=== PATIENT | female | born 1965 | race Caucasian/White ===

== ENCOUNTER → 2016-11-27 | Outpatient (CLI) | payer OTHER ==
--- NOTE | 2016-12-04 14:10 | MY ---
EXAMINATION: Bilateral digital mammography utilizing CAD. HISTORY: Screening exam. Comparison is made to previous studies dated 09/09/2015, 09/06/2015, 07/28, 06/23/2013. FINDINGS: Bilateral extremity dense breast tissue. No suspicious calcifications, masses or archite ctural distortions. No pathologic appearing lymph nodes, no abnormal skin thickening or nipple inv ersion. CAD highlighted regions appear normal at this time. IMPRESSION: BI-RADS category I - negative mammogram. Continued screening according to ACR-ACS gu idelines suggested. THE FALSE-NEGATIVE RATE OF MAMMOGRAM IS APPROXIMATELY 10%. MANAGEMENT OF A PALPABLE ABNORMALITY MUST BE BASED UPON CLINICAL GROUNDS. SENSITIVITY FOR DETECTION OF ABNORMALITIES IN DENSE BREASTS IS LOW. NOTE: A letter will be sent to the patient regarding findings. [facility] -- JESUS Mike [phone] - FAX [phone]
== END ==
LOC: MW.MAM 14:59
PROVIDERS: ATTEND Obstetrics & Gynecology
DX: Z12.31 Encounter for screening mammogram for malignant neoplasm of breast (principal)
CPT/HCPCS: G0202; G0202-26

== ENCOUNTER 2016-11-30 08:01 | Day surgery (SDC) | payer OTHER ==
--- NOTE | 2016-11-29 15:34 | PCM.PREANE ---
Preanesthetic Assessment - PMH PMH: scheduled for a total laparoscopic hysterectomy, Bilaterally salpingo- oophorectomy and cystoscopy - ANESTHESIA/TRANSFUSION/FAMILY HX Anesthesia/Transfusion History: Prior Anesthesia Type of Anesthesia Reaction: Reports: Excessive Nausea/Vomiting. 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 Respiratory: Reports: no symptoms Cardiovascular: Reports: lightheadedness (tired) GI: Reports: no symptoms - PHYSICAL ASSESSMENT HR: 102 O2 Sat by Pulse Oximetry: 99 RR: 16 BP: 130/72 Temp: 36.2 C Height: 5 ft 3 in Weight: 66.678 kg NPO Status Date: 11/29/16 NPO Status Time: 19:30 ASA Class: 3 Mental Status: alert & oriented x3 Airway Class: Mallampati = 2 Dentition: Reports: normal dentition Thyro-Mental Finger Breadths: 3 Mouth Opening Finger Breadths: 2 ROM/Head Extension: full Respiratory Status: lungs clear to auscultation bilaterally Cardiovascular Status: regular rate & rhythm, normal S1, S2, no murmur, blood pressure WNL - LAB Values: Laboratory Last Values WBC 10.91 K/uL (4.0-11.0) 11/29/16 14:47 RBC 3.77 M/uL (4.30-5.90) L 11/29/16 14:47 Hgb 8.0 g/dL (12.0-16.0) L 11/29/16 14:47 Hct 26.9 % (36.0-46.0) L 11/29/16 14:47 MCV 71.4 fL (80.0-98.0) L 11/29/16 14:47 MCH 21.2 pg (27.0-32.0) L 11/29/16 14:47 MCHC 29.7 g/dL (31.0-37.0) L 11/29/16 14:47 RDW Std Deviation 43.1 fl (28.0-62.0) 11/29/16 14:47 RDW Coeff of Allyson 17 % (11.0-15.0) H 11/29/16 14:47 Plt Count 518 K/uL (150-400) H 11/29/16 14:47 MPV 8.20 fL (7.40-12.00) 11/29/16 14:47 Nucleated RBC % 0.0 /100WBC 11/29/16 14:47 Nucleated RBCs # 0 K/uL 11/29/16 14:47 Sodium 137 mmol/L (136-146) 11/29/16 14:47 Potassium 4.1 mmol/L (3.5-5.1) 11/29/16 14:47 Chloride 104 mmol/L (98-110) 11/29/16 14:47 Carbon Dioxide 23 mmol/L (21-31) 11/29/16 14:47 BUN 15 mg/dL (6.0-23.0) 11/29/16 14:47 Creatinine 1.0 mg/dL (0.6-1.5) 11/29/16 14:47 Est Cr Clr Drug Dosing 56.29 mL/min 11/29/16 14:47 Estimated GFR (MDRD) 58.9 ml/min 11/29/16 14:47 Glucose 102 mg/dL (60-110) 11/29/16 14:47 Calcium 9.2 mg/dL (8.8-10.8) 11/29/16 14:47 HCG, Qual NEGATIVE (NEG) 11/29/16 14:47 - ALLERGIES Allergies/Adverse Reactions: Allergies Allergy/AdvReac Type Severity Reaction Status Date / Time No Known Allergies Allergy Verified 11/21/16 20:26 - BLOOD Blood Available: Yes Product(s) Available: PRBC (2 units type and crossed transfusing 1 unit preop) - ANESTHESIA PLAN Anesthesia Type Planned: general anesthesia - ACKNOWLEDGEMENTS Pt an appropriate candidate for the planned anesthesia: Yes Alternatives and risks of anesthesia discussed w pt/guardian: Yes Pt/Guardian understands and agree with anesthesia plan: Yes PreAnesthesia Questionnaire HEENT History: Reports: None Cardiovascular History: Reports: High cholesterol, Hypertension, Syncope (ER visit on 11/21/16 for sycopal event secondary to menorrhagia, HGB was 8.1, patient refused hospitalization and followed up with Dr Bonds in clinic and was started on Provera.), Other (see below) Other Cardiovascular History: mitral valve prolapse Respiratory History: Reports: None Gastrointestinal History: Reports: None Genitourinary History: Reports: None 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 Large fibroid measuring 7-8 cm Musculoskeletal History: Reports: None Neurological History: Reports: None Psychiatric History: Reports: None Endocrine/Metabolic History: Reports: Diabetes, type II Hematologic History: Reports: None, Anemia Oncologic (Cancer) History: Reports: None Dermatologic History: Reports: None - Infectious Disease History Infectious Disease History: Reports: Chicken pox - Past Surgical History Head Surgeries/Procedures: Reports: None HEENT Surgical History: Reports: Oral surgery Other Female Surgeries/Procedures: hysteroscopy - SUBSTANCE USE Smoking Status *Q: Never Smoker Recreational Drug Use History: No - HOME MEDS Home Medications: Home Meds Lisinopril 20 mg PO DAILY 11/21/16 [History] atorvaSTATin [Lipitor] 10 mg PO ONETIME 11/21/16 [History] metFORMIN [Glucophage] 1 tab PO DAILY 11/21/16 [History] - CURRENT (IN HOUSE) MEDS Current Meds: Current Medications Lactated Ringer's (Ringers, Lactated) 1,000 mls @ 500 mls/hr IV .BOLUS MITRA Sodium Chloride (Saline Flush) 10 ml FLUSH ASDIRECTED PRN PRN Reason: Keep Vein Open Sodium Chloride (Saline Flush) 2.5 ml FLUSH ASDIRECTED PRN PRN Reason: Keep Vein Open Discontinued Medications Cefazolin Sodium/Dextrose 2 gm (/ Premix) 50 mls @ 100 mls/hr IV ONETIME ONE Stop: 11/29/16 13:57
[~2016-11-30 08:01] MED LIST: Lactated Ringers 1,000 ML IV SCH; Lidocaine 2% 5 ML SDV ONE; Midazolam 1 MG/ML 2 ML SDV ONE; Neostigmine Methylsulfate 1 MG/ML 5 ML Syringe ONE; Ondansetron 4 MG/2 ML SDV ONE; Propofol 200 MG/20 ML SDV ONE; Rocuronium 10 MG/ML 10 ML Syringe ONE; Sodium Chloride 0.9% 10 ML Syringe FLUSH PRN; Sodium Chloride 0.9% 2.5 ML Syringe FLUSH PRN; Sodium Chloride 0.9% 20 ML ONE; ceFAZolin 1 GM Vial ONE; ceFAZolin 2 GM in Premix Bag 1 BAG IV ONE; fentaNYL 250 MCG/5 ML SDV ONE
[2016-11-30] MEDS ORDERED: Scopolamine 1.5 MG Transdermal Patch TRDERM PRN (08:32)
[2016-11-30] MEDS ORDERED: Phenylephrine 1% 10 MG/ML SDV ONE (09:48)
[2016-11-30] MEDS ORDERED: Furosemide 40 MG/4 ML VIAL ONE (09:53)
[2016-11-30] MEDS ORDERED: fentaNYL 250 MCG/5 ML SDV ONE (10:08)
[2016-11-30] MEDS ORDERED: Fluorescein 5 ML Vial ONE (10:26)
[2016-11-30] MEDS ORDERED: HYDROmorphone 2 MG/ML Syringe ONE (10:44)
[2016-11-30] MEDS ORDERED: Octyl 2-Cyanoacrylate 1 Tube ONE (11:05)
[2016-11-30] MEDS ORDERED: fentaNYL 100 MCG/2 ML SDV IVPUSH PRN (11:06)
[2016-11-30] MEDS ORDERED: Ketorolac 30 MG/ML SDV IVPUSH ONE (11:07)
[2016-11-30] MEDS ORDERED: Morphine 4 MG/ML Syringe IVPUSH PRN (11:07)
[2016-11-30] MEDS ORDERED: Promethazine 25 MG/ML SDV IM PRN (11:07)
[2016-11-30] MEDS ORDERED: Ondansetron 4 MG/2 ML SDV IVPUSH PRN (11:07)
--- NOTE | 2016-11-30 11:14 | PCM.OPNOTE ---
- General Post-Op/Procedure Note Date of Surgery/Procedure: 11/30/16 Operative Procedure(s): TLH BSO Cysto Findings: Fibroid Uterus Pre Op Diagnosis: Menometrorraghia, Fibroid Ut, Anemia Post-Op Diagnosis: Same Primary Surgeon: Luigi Bonds Vascular Technologist Sonographer: Ana Hughes EBL in mLs: 75 Complications: None Condition: Good
[2016-11-30] MEDS ORDERED: Lactated Ringers 1,000 ML IV SCH ×2 (13:45→15:45)
[2016-11-30] MEDS ORDERED: Ketorolac 30 MG/ML SDV IVPUSH PRN (17:00)
[2016-11-30] MEDS: Acetaminophen/oxyCODONE 325-5 MG Tab PO PRN (19:57)
[2016-12-01 05:37] LABS: CHLORIDE,CL 109 mmol/L (98-110); SODIUM,NA 140 mmol/L (136-146)
[2016-12-01] MEDS: Acetaminophen/oxyCODONE 325-5 MG Tab PO PRN (06:09)
--- NOTE | 2016-12-01 06:18 | OR ---
SURGEON: Luigi Bonds MD DATE OF PROCEDURE: 11/30/16 PREOPERATIVE DIAGNOSES: Menometrorrhagia, fibroid uterus, anemia. POSTOPERATIVE DIAGNOSES: Menometrorrhagia, fibroid uterus, anemia. OPERATION PERFORMED: Total laparoscopic hysterectomy, laparoscopic bilateral salpingo-oophorectomy, and cystoscopy. EDITOR NEWS: TREMAINE Batista. ANESTHESIA: General endotracheal intubation by Vincenzo Doll and Dr. Nuñez. ESTIMATED BLOOD LOSS: 75 mL. COMPLICATION: None. FINDINGS: Uterus with multiple fibroid about 15 week size. INDICATION: Surprise refer to the admit note. PROCEDURE IN DETAIL: The patient was brought to the OR, properly identified, and after adequate level of general anesthesia, the patient was placed in lithotomy position with an access to the abdomen and the vagina. Koenig catheter was placed in the bladder for drainage and the VCare manipulator placed in the uterus for manipulation. The operation shifted abdominally. Stab wound done beneath the umbilicus. The Veress needle was placed in the peritoneal cavity and that cavity was insufflated with 6 L of carbon dioxide. Then, the 5-mm trocar was entered beneath the umbilicus utilizing the Visiport techniques. Once we were in the peritoneal cavity, 10-12 trocar was placed and 5-mm trocar placed in the left and right iliac fossa under direct vision. The operation was started after placing the patient steep Trendelenburg and identifying the landmark of the pelvis, and once we did identify the landmarks of the pelvis, then the superior pedicle coagulated, transected using the EnSeal Harmonic scapula. On both sides, the tubes and ovary included with a specimen and then the round ligament in the same manner coagulated and transected with Harmonic scalpel. Then, the anterior leaf of the broad ligament dissected downward medially pushing the bladder completely away from the operative field. The uterine vessel identified on both sides and coagulated and transected using the SHANTA seven harmonic scapula. Once it was done, the uterus was now only attached to the vagina using the SHANTA seven harmonic scapula, circular incision in the vaginal mucosa around the tip of the VCare manipulator done without any problem and then the uterus was moved and delivered vaginally. Pneumoperitoneum re-established by placing vaginal pack in the vagina and inspection of the entire operative field showed no oozing, no bleeding. We proceeded to close the vaginal cuff laparoscopically using 2-0 PDS interrupted [id number] sutures. While that was done, we asked the anesthesiologist to give the patient fluorescein, and then the air evacuated from the peritoneal cavity. The Koenig catheter was removed and cystoscopy was performed. The bladder was intact. Both ureteric orifices were seen with the dye coming from both of them. Thus, the patency of both ureters verified. Satisfied with these findings, the procedure ended. The instrument and hardware were retrieved from the abdomen and the vagina and the multiple laparoscopic incisions were closed in layers. Instrument and sponge count was correct. The patient tolerated the procedure well, went to recovery room in stable general condition. RONY / ANNMARIE /[id number]
[2016-12-01 07:51] VITALS: BP 110/64
--- NOTE | 2016-12-01 09:00 | PCM.SURGPN ---
- General Info Date of Service: 12/01/16 POD#: 1 Functional Status: Reports: pain controlled - Review of Systems General: Reports: no symptoms HEENT: Reports: no symptoms Pulmonary: Reports: no symptoms Cardiovascular: Reports: no symptoms Gastrointestinal: Reports: No symptoms Genitourinary: Reports: no symptoms Musculoskeletal: Reports: no symptoms Skin: Reports: no symptoms Neurological: Reports: no symptoms Psychiatric: Reports: no symptoms - Patient Data Vitals - most recent: Last Vital Signs Temp 37.1 C 12/01/16 07:48 Pulse 94 12/01/16 07:48 Resp 18 12/01/16 07:48 BP 110/64 12/01/16 07:48 Pulse Ox 95 12/01/16 07:48 Weight - most recent: 66.678 kg I&O - last 24 hours: Intake & Output 11/30/16 12/01/16 12/01/16 22:59 06:59 14:59 Output Total 1050 550 Balance -1050 -550 Lab Results last 24 hrs: Laboratory Results - last 24 hr 11/29/16 11/29/16 11/29/16 Range/Units 14:47 14:47 14:47 WBC (4.0-11.0) K/uL RBC (4.30-5.90) M/uL Hgb (12.0-16.0) g/dL Hct (36.0-46.0) % MCV (80.0-98.0) fL MCH (27.0-32.0) pg MCHC (31.0-37.0) g/dL RDW Std Deviation (28.0-62.0) fl RDW Coeff of Allyson (11.0-15.0) % Plt Count (150-400) K/uL MPV (7.40-12.00) fL Neut % (Auto) (48.0-80.0) % Lymph % (Auto) (16.0-40.0) % [place] % (Auto) (0.0-15.0) % Eos % (Auto) (0.0-7.0) % Baso % (Auto) (0.0-1.5) % Neut # (1.4-5.7) K/uL Lymph # (0.6-2.4) K/uL [place] # (0.0-0.8) K/uL Eos # (0.0-0.7) K/uL Baso # (0.0-0.1) K/uL Nucleated RBC % /100WBC Nucleated RBCs # K/uL Sodium 137 (136-146) mmol/L Potassium 4.1 (3.5-5.1) mmol/L Chloride 104 (98-110) mmol/L Carbon Dioxide 23 (21-31) mmol/L BUN 15 (6.0-23.0) mg/dL Creatinine 1.0 (0.6-1.5) mg/dL Est Cr Clr Drug Dosing 56.29 mL/min Estimated GFR (MDRD) 58.9 ml/min Glucose 102 (60-110) mg/dL Calcium 9.2 (8.8-10.8) mg/dL Blood Type B POSITIVE Antibody Screen NEGATIVE Crossmatch See Detail See Detail 12/01/16 12/01/16 Range/Units 04:39 04:39 WBC 10.36 (4.0-11.0) K/uL RBC 3.47 L (4.30-5.90) M/uL Hgb 7.7 L (12.0-16.0) g/dL Hct 25.6 L (36.0-46.0) % MCV 73.8 L (80.0-98.0) fL MCH 22.2 L (27.0-32.0) pg MCHC 30.1 L (31.0-37.0) g/dL RDW Std Deviation 47.3 (28.0-62.0) fl RDW Coeff of Allyson 18 H (11.0-15.0) % Plt Count 397 (150-400) K/uL MPV 8.30 (7.40-12.00) fL Neut % (Auto) 71.3 (48.0-80.0) % Lymph % (Auto) 17.5 (16.0-40.0) % [place] % (Auto) 10.6 (0.0-15.0) % Eos % (Auto) 0.4 (0.0-7.0) % Baso % (Auto) 0.2 (0.0-1.5) % Neut # 7.4 H (1.4-5.7) K/uL Lymph # 1.8 (0.6-2.4) K/uL [place] # 1.1 H (0.0-0.8) K/uL Eos # 0.0 (0.0-0.7) K/uL Baso # 0.0 (0.0-0.1) K/uL Nucleated RBC % 0.0 /100WBC Nucleated RBCs # 0 K/uL Sodium 140 (136-146) mmol/L Potassium 4.1 (3.5-5.1) mmol/L Chloride 109 (98-110) mmol/L Carbon Dioxide 22 (21-31) mmol/L BUN 9 (6.0-23.0) mg/dL Creatinine 0.8 (0.6-1.5) mg/dL Est Cr Clr Drug Dosing 70.37 mL/min Estimated GFR (MDRD) > 60.0 ml/min Glucose 90 (60-110) mg/dL Calcium 8.0 L (8.8-10.8) mg/dL Blood Type Antibody Screen Crossmatch Med Orders - Current: Current Medications Fentanyl (Sublimaze) 50 mcg IVPUSH Q5M PRN PRN Reason: Pain (severe 7-10) Stop: 12/01/16 11:06 Last Admin: 11/30/16 11:46 Dose: 50 mcg Lactated Ringer's (Ringers, Lactated) 1,000 mls @ 500 mls/hr IV .BOLUS [facility] Last Admin: 11/30/16 08:31 Dose: 500 mls/hr Lactated Ringer's (Ringers, Lactated) 1,000 mls @ 125 mls/hr IV ASDIRECTED [facility] Last Admin: 11/30/16 15:39 Dose: 125 mls/hr Ketorolac Tromethamine (Toradol) 30 mg IVPUSH Q6H PRN PRN Reason: Pain (severe 7-10) Stop: 12/05/16 17:01 Last Admin: 11/30/16 16:47 Dose: 30 mg Morphine Sulfate (Morphine) 4 mg IVPUSH Q2H PRN PRN Reason: Pain (severe 7-10) Last Admin: 11/30/16 13:01 Dose: 4 mg Ondansetron HCl (Zofran) 4 mg IVPUSH Q6H PRN PRN Reason: Nausea/Vomiting Oxycodone/Acetaminophen (Percocet 325-5 Mg) 2 tab PO Q4H PRN PRN Reason: Pain (moderate 4-6) Last Admin: 12/01/16 06:09 Dose: 2 tab Promethazine HCl (Phenergan) 25 mg IM Q6H PRN PRN Reason: Nausea/Vomiting Scopolamine (Transderm-Scop) 1.5 mg TRDERM Q72H PRN PRN Reason: Nausea Last Admin: 11/30/16 09:04 Dose: 1.5 mg Sodium Chloride (Saline Flush) 10 ml FLUSH ASDIRECTED PRN PRN Reason: Keep Vein Open Sodium Chloride (Saline Flush) 2.5 ml FLUSH ASDIRECTED PRN PRN Reason: Keep Vein Open Discontinued Medications Cefazolin Sodium (Ancef) Confirm Administered Dose 2 gm .ROUTE .STK-MED ONE Stop: 11/30/16 07:25 Fentanyl (Sublimaze) Confirm Administered Dose 250 mcg .ROUTE .STK-MED ONE Stop: 11/30/16 07:23 Fentanyl (Sublimaze) Confirm Administered Dose 250 mcg .ROUTE .STK-MED ONE Stop: 11/30/16 10:09 Fluorescein Sodium (Ak-Fluor) Confirm Administered Dose 5 ml .ROUTE .STK-MED ONE Stop: 11/30/16 10:27 Furosemide (Lasix) Confirm Administered Dose 40 mg .ROUTE .STK-MED ONE Stop: 11/30/16 09:54 Glycopyrrolate (Robinul) Confirm Administered Dose 1 mg .ROUTE .STK-MED ONE Stop: 11/30/16 07:22 Hydromorphone HCl (Dilaudid) Confirm Administered Dose 2 mg .ROUTE .STK-MED ONE Stop: 11/30/16 10:45 Cefazolin Sodium/Dextrose 2 gm (/ Premix) 50 mls @ 100 mls/hr IV ONETIME ONE Stop: 11/29/16 13:57 Last Admin: 11/30/16 12:53 Dose: Not Given Sodium Chloride (Normal Saline) Confirm Administered Dose 20 mls @ as directed .ROUTE .STK-MED ONE Stop: 11/30/16 07:25 Ketorolac Tromethamine (Toradol) 30 mg IVPUSH ONETIME ONE Stop: 11/30/16 11:08 Last Admin: 11/30/16 11:37 Dose: 30 mg Lidocaine (Xylocaine-Mpf 2%) Confirm Administered Dose 5 ml .ROUTE .STK-MED ONE Stop: 11/30/16 07:22 Midazolam HCl (Versed 1 Mg/Ml) Confirm Administered Dose 2 mg .ROUTE .STK-MED ONE Stop: 11/30/16 07:23 Neostigmine Methylsulfate (Neostigmine) Confirm Administered Dose 5 mg .ROUTE .STK-MED ONE Stop: 11/30/16 07:22 Octyl Cyanoacrylate (Dermabond Advance) Confirm Administered Dose 1 applic .ROUTE .STK-MED ONE Stop: 11/30/16 11:06 Ondansetron HCl (Zofran) Confirm Administered Dose 4 mg .ROUTE .STK-MED ONE Stop: 11/30/16 07:22 Phenylephrine HCl (Patrick-Synephrine) Confirm Administered Dose 10 mg .ROUTE .STK- MED ONE Stop: 11/30/16 09:49 Propofol (Diprivan 20 Ml) Confirm Administered Dose 200 mg .ROUTE .STK-MED ONE Stop: 11/30/16 07:23 Rocuronium [place] (Zemuron) Confirm Administered Dose 100 mg .ROUTE .STK-MED ONE Stop: 11/30/16 07:22 - Exam Wound/Incisions: healing well General: alert, oriented HEENT: Pupils equal Neck: supple Lungs: Clear to auscultation, Normal respiratory effort Cardiovascular: regular rate, regular rhythm Abdomen: bowel sounds present, soft, no tenderness, no distension Extremities: no edema Skin: warm, dry, intact Neurological: no new focal deficit Psy/Mental Status: alert, normal affect, normal mood - Problem List Review Problem List Initiated/Reviewed/Updated: Yes - My Orders Last 24 Hours: Active Orders 24 hr Category Date Time Status Patient Status [ADT] Routine ADT 11/30/16 11:07 Active Antiembolic Devices [RC] PER UNIT ROUTINE Care 11/30/16 11:08 Active Blood Glucose Check, Bedside [RC] ONETIME Care 11/30/16 08:00 Active Notify Provider Vital Signs [RC] ASDIRECTED Care 11/30/16 11:07 Active RT Incentive Spirometry [RC] Q2HWA Care 11/30/16 11:07 Active Up ad Olivia [RC] PER UNIT ROUTINE Care 11/30/16 11:07 Active Vital Signs [RC] PER UNIT ROUTINE Care 11/30/16 11:07 Active Regular Diet [DIET] Diet 11/30/16 Dinner Active Acetaminophen/oxyCODONE [Percocet 325-5 MG] Med 11/30/16 11:07 Active 2 tab PO Q4H PRN Ketorolac [Toradol] Med 11/30/16 17:00 Active 30 mg IVPUSH Q6H PRN Lactated Ringers [Ringers, Lactated] 1,000 ml Med 11/30/16 15:45 Active IV ASDIRECTED Morphine Med 11/30/16 11:07 Active 4 mg IVPUSH Q2H PRN Ondansetron [Zofran] Med 11/30/16 11:07 Active 4 mg IVPUSH Q6H PRN Promethazine [Phenergan] Med 11/30/16 11:07 Active 25 mg IM Q6H PRN Scopolamine [Transderm-Scop] Med 11/30/16 08:32 Active 1.5 mg TRDERM Q72H PRN fentaNYL [Sublimaze] Med 11/30/16 11:06 Active 50 mcg IVPUSH Q5M PRN Peripheral IV Discontinue [OM.PC] Routine Oth 11/30/16 11:07 Ordered Sequential Compression Device [OM.PC] Per Unit Routine Oth 11/30/16 11:07 Ordered Transfuse PRBC [Transfuse Red Blood Cells] [COMM] Oth 11/30/16 08:08 Ordered Urgent Resuscitation Status Routine Resus Stat 11/30/16 11:07 Ordered Medication Orders Fentanyl (Sublimaze) 50 mcg IVPUSH Q5M PRN PRN Reason: Pain (severe 7-10) Stop: 12/01/16 11:06 Last Admin: 11/30/16 11:46 Dose: 50 mcg Lactated Ringer's (Ringers, Lactated) 1,000 mls @ 500 mls/hr IV .BOLUS MITRA Last Admin: 11/30/16 08:31 Dose: 500 mls/hr Lactated Ringer's (Ringers, Lactated) 1,000 mls @ 125 mls/hr IV ASDIRECTED MITRA Last Admin: 11/30/16 15:39 Dose: 125 mls/hr Ketorolac Tromethamine (Toradol) 30 mg IVPUSH Q6H PRN PRN Reason: Pain (severe 7-10) Stop: 12/05/16 17:01 Last Admin: 11/30/16 16:47 Dose: 30 mg Morphine Sulfate (Morphine) 4 mg IVPUSH Q2H PRN PRN Reason: Pain (severe 7-10) Last Admin: 11/30/16 13:01 Dose: 4 mg Ondansetron HCl (Zofran) 4 mg IVPUSH Q6H PRN PRN Reason: Nausea/Vomiting Oxycodone/Acetaminophen (Percocet 325-5 Mg) 2 tab PO Q4H PRN PRN Reason: Pain (moderate 4-6) Last Admin: 12/01/16 06:09 Dose: 2 tab Admin: 11/30/16 19:57 Dose: 2 tab Promethazine HCl (Phenergan) 25 mg IM Q6H PRN PRN Reason: Nausea/Vomiting Scopolamine (Transderm-Scop) 1.5 mg TRDERM Q72H PRN PRN Reason: Nausea Last Admin: 11/30/16 09:04 Dose: 1.5 mg Sodium Chloride (Saline Flush) 10 ml FLUSH ASDIRECTED PRN PRN Reason: Keep Vein Open Sodium Chloride (Saline Flush) 2.5 ml FLUSH ASDIRECTED PRN PRN Reason: Keep Vein Open - Assessment Assessment (Free Text/Narrative):: Status post total laparoscopic hysterectomy and laparoscopic bilateral salpingo- oophorectomy postoperative day #1 she is doing well the arthroscopic incision is fine no vaginal bleeding on regular diet voiding without any problem. Her H& H is stable - Plan Plan (Free Text/Narrative):: I'm sending the patient home the post hysterectomy instruction is given to the patient a prescription for Percocet 7.5/325 by mouth 50 tablet is given the patient to take it every 4 hours and when necessary for the pain. There is no restriction on her diet the patient have an appointment to come to the office one week postoperatively
--- NOTE | 2016-12-01 09:01 | PCM.DCSUM1 ---
Discharge Summary - Discharge Data Discharge Date: 12/01/16 Discharge Disposition: Home, Self-Care 01 Condition: Good - Patient Summary/Data Operative Procedure(s) Performed: [facility] BSO Cysto - Patient Instructions Diet: Usual Diet as Tolerated Driving: Do Not Drive Showering/Bathing: May Shower Wound/Incision Care: Keep Operative Site/Wound Site Clean and Dry Notify Provider of: Fever, Increased Pain, Swelling and Redness, Nausea and/or Vomiting - Discharge Plan Home Medications: Home Meds Lisinopril 20 mg PO DAILY 11/21/16 [History] atorvaSTATin [Lipitor] 10 mg PO ONETIME 11/21/16 [History] metFORMIN [Glucophage] 1 tab PO DAILY 11/21/16 [History] Referrals: [facility] [Outside] Luigi Bonds MD [Primary Care Provider] - (1 week- December 12 @ 10:45am w/ Dr. Bonds week- January 12 @ 10:45am w/ Dr. Bonds) - General Info Date of Service: 12/01/16 Functional Status: Reports: pain controlled - Review of Systems General: Reports: no symptoms HEENT: Reports: no symptoms Pulmonary: Reports: no symptoms Cardiovascular: Reports: no symptoms Gastrointestinal: Reports: No symptoms Genitourinary: Reports: no symptoms Musculoskeletal: Reports: no symptoms Skin: Reports: no symptoms Neurological: Reports: no symptoms Psychiatric: Reports: no symptoms - Patient Data Vitals - Most Recent: Last Vital Signs Temp 37.1 C 12/01/16 07:48 Pulse 94 12/01/16 07:48 Resp 18 12/01/16 07:48 BP 110/64 12/01/16 07:48 Pulse Ox 95 12/01/16 07:48 Weight - Most Recent: 66.678 kg I&O - Last 24 hours: Intake & Output 11/30/16 12/01/16 12/01/16 22:59 06:59 14:59 Output Total 1050 550 Balance -1050 -550 Lab Results - Last 24 hrs: Laboratory Results - last 24 hr 11/29/16 11/29/16 11/29/16 Range/Units 14:47 14:47 14:47 WBC (4.0-11.0) K/uL RBC (4.30-5.90) M/uL Hgb (12.0-16.0) g/dL Hct (36.0-46.0) % MCV (80.0-98.0) fL MCH (27.0-32.0) pg MCHC (31.0-37.0) g/dL RDW Std Deviation (28.0-62.0) fl RDW Coeff of Allyson (11.0-15.0) % Plt Count (150-400) K/uL MPV (7.40-12.00) fL Neut % (Auto) (48.0-80.0) % Lymph % (Auto) (16.0-40.0) % [place] % (Auto) (0.0-15.0) % Eos % (Auto) (0.0-7.0) % Baso % (Auto) (0.0-1.5) % Neut # (1.4-5.7) K/uL Lymph # (0.6-2.4) K/uL [place] # (0.0-0.8) K/uL Eos # (0.0-0.7) K/uL Baso # (0.0-0.1) K/uL Nucleated RBC % /100WBC Nucleated RBCs # K/uL Sodium 137 (136-146) mmol/L Potassium 4.1 (3.5-5.1) mmol/L Chloride 104 (98-110) mmol/L Carbon Dioxide 23 (21-31) mmol/L BUN 15 (6.0-23.0) mg/dL Creatinine 1.0 (0.6-1.5) mg/dL Est Cr Clr Drug Dosing 56.29 mL/min Estimated GFR (MDRD) 58.9 ml/min Glucose 102 (60-110) mg/dL Calcium 9.2 (8.8-10.8) mg/dL Blood Type B POSITIVE Antibody Screen NEGATIVE Crossmatch See Detail See Detail 12/01/16 12/01/16 Range/Units 04:39 04:39 WBC 10.36 (4.0-11.0) K/uL RBC 3.47 L (4.30-5.90) M/uL Hgb 7.7 L (12.0-16.0) g/dL Hct 25.6 L (36.0-46.0) % MCV 73.8 L (80.0-98.0) fL MCH 22.2 L (27.0-32.0) pg MCHC 30.1 L (31.0-37.0) g/dL RDW Std Deviation 47.3 (28.0-62.0) fl RDW Coeff of Allyson 18 H (11.0-15.0) % Plt Count 397 (150-400) K/uL MPV 8.30 (7.40-12.00) fL Neut % (Auto) 71.3 (48.0-80.0) % Lymph % (Auto) 17.5 (16.0-40.0) % [place] % (Auto) 10.6 (0.0-15.0) % Eos % (Auto) 0.4 (0.0-7.0) % Baso % (Auto) 0.2 (0.0-1.5) % Neut # 7.4 H (1.4-5.7) K/uL Lymph # 1.8 (0.6-2.4) K/uL [place] # 1.1 H (0.0-0.8) K/uL Eos # 0.0 (0.0-0.7) K/uL Baso # 0.0 (0.0-0.1) K/uL Nucleated RBC % 0.0 /100WBC Nucleated RBCs # 0 K/uL Sodium 140 (136-146) mmol/L Potassium 4.1 (3.5-5.1) mmol/L Chloride 109 (98-110) mmol/L Carbon Dioxide 22 (21-31) mmol/L BUN 9 (6.0-23.0) mg/dL Creatinine 0.8 (0.6-1.5) mg/dL Est Cr Clr Drug Dosing 70.37 mL/min Estimated GFR (MDRD) > 60.0 ml/min Glucose 90 (60-110) mg/dL Calcium 8.0 L (8.8-10.8) mg/dL Blood Type Antibody Screen Crossmatch Med Orders - Current: Current Medications Fentanyl (Sublimaze) 50 mcg IVPUSH Q5M PRN PRN Reason: Pain (severe 7-10) Stop: 12/01/16 11:06 Last Admin: 11/30/16 11:46 Dose: 50 mcg Lactated Ringer's (Ringers, Lactated) 1,000 mls @ 500 mls/hr IV .BOLUS MITRA Last Admin: 11/30/16 08:31 Dose: 500 mls/hr Lactated Ringer's (Ringers, Lactated) 1,000 mls @ 125 mls/hr IV ASDIRECTED MITRA Last Admin: 11/30/16 15:39 Dose: 125 mls/hr Ketorolac Tromethamine (Toradol) 30 mg IVPUSH Q6H PRN PRN Reason: Pain (severe 7-10) Stop: 12/05/16 17:01 Last Admin: 11/30/16 16:47 Dose: 30 mg Morphine Sulfate (Morphine) 4 mg IVPUSH Q2H PRN PRN Reason: Pain (severe 7-10) Last Admin: 11/30/16 13:01 Dose: 4 mg Ondansetron HCl (Zofran) 4 mg IVPUSH Q6H PRN PRN Reason: Nausea/Vomiting Oxycodone/Acetaminophen (Percocet 325-5 Mg) 2 tab PO Q4H PRN PRN Reason: Pain (moderate 4-6) Last Admin: 12/01/16 06:09 Dose: 2 tab Promethazine HCl (Phenergan) 25 mg IM Q6H PRN PRN Reason: Nausea/Vomiting Scopolamine (Transderm-Scop) 1.5 mg TRDERM Q72H PRN PRN Reason: Nausea Last Admin: 11/30/16 09:04 Dose: 1.5 mg Sodium Chloride (Saline Flush) 10 ml FLUSH ASDIRECTED PRN PRN Reason: Keep Vein Open Sodium Chloride (Saline Flush) 2.5 ml FLUSH ASDIRECTED PRN PRN Reason: Keep Vein Open Discontinued Medications Cefazolin Sodium (Ancef) Confirm Administered Dose 2 gm .ROUTE .STK-MED ONE Stop: 11/30/16 07:25 Fentanyl (Sublimaze) Confirm Administered Dose 250 mcg .ROUTE .STK-MED ONE Stop: 11/30/16 07:23 Fentanyl (Sublimaze) Confirm Administered Dose 250 mcg .ROUTE .STK-MED ONE Stop: 11/30/16 10:09 Fluorescein Sodium (Ak-Fluor) Confirm Administered Dose 5 ml .ROUTE .STK-MED ONE Stop: 11/30/16 10:27 Furosemide (Lasix) Confirm Administered Dose 40 mg .ROUTE .[facility] ONE Stop: 11/30/16 09:54 Glycopyrrolate (Robinul) Confirm Administered Dose 1 mg .ROUTE .[facility]-MED ONE Stop: 11/30/16 07:22 Hydromorphone HCl (Dilaudid) Confirm Administered Dose 2 mg .ROUTE .[facility] ONE Stop: 11/30/16 10:45 Cefazolin Sodium/Dextrose 2 gm (/ Premix) 50 mls @ 100 mls/hr IV ONETIME ONE Stop: 11/29/16 13:57 Last Admin: 11/30/16 12:53 Dose: Not Given Sodium Chloride (Normal Saline) Confirm Administered Dose 20 mls @ as directed .ROUTE .[facility] ONE Stop: 11/30/16 07:25 Ketorolac Tromethamine (Toradol) 30 mg IVPUSH ONETIME ONE Stop: 11/30/16 11:08 Last Admin: 11/30/16 11:37 Dose: 30 mg Lidocaine (Xylocaine-Mpf 2%) Confirm Administered Dose 5 ml .ROUTE .[facility] ONE Stop: 11/30/16 07:22 Midazolam HCl (Versed 1 Mg/Ml) Confirm Administered Dose 2 mg .ROUTE .[facility]-MED ONE Stop: 11/30/16 07:23 Neostigmine Methylsulfate (Neostigmine) Confirm Administered Dose 5 mg .ROUTE .[facility] ONE Stop: 11/30/16 07:22 Octyl Cyanoacrylate (Dermabond Advance) Confirm Administered Dose 1 applic .ROUTE .[facility] ONE Stop: 11/30/16 11:06 Ondansetron HCl (Zofran) Confirm Administered Dose 4 mg .ROUTE .[facility] ONE Stop: 11/30/16 07:22 Phenylephrine HCl (Patrick-Synephrine) Confirm Administered Dose 10 mg .ROUTE .[facility] ONE Stop: 11/30/16 09:49 Propofol (Diprivan 20 Ml) Confirm Administered Dose 200 mg .ROUTE .[facility] ONE Stop: 11/30/16 07:23 Rocuronium Wiseman (Zemuron) Confirm Administered Dose 100 mg .ROUTE .[facility] ONE Stop: 11/30/16 07:22 - Exam General: Reports: alert, oriented HEENT: Reports: Pupils equal, Pupils reactive, EOMI, Mucous membr. moist/pink Neck: Reports: supple Lungs: Reports: Clear to auscultation, Normal respiratory effort Cardiovascular: Reports: regular rate, regular rhythm Abdomen: Reports: bowel sounds present, soft, no tenderness, no distension (Female) Exam: Normal external exam, Normal speculum exam, Normal bimanual exam Rectal (Female) Exam: Normal Exam, Normal rectal tone Back Exam: Reports: normal inspection, full range of motion Extremities: Reports: no edema, normal pulses Skin: Reports: warm, dry, intact Wound/Incisions: Reports: healing well Neurological: Reports: no new focal deficit Psy/Mental Status: Reports: alert, normal affect, normal mood *Q Meaningful Use (DIS) - VTE *Q VTE Criteria *Q: - Stroke *Q Stroke Criteria *Q: - AMI *Q AMI Criteria *Q:
== END 2016-12-01 09:30 | disposition home or self-care (01) ==
LOC: MW.SDS 08:01 → MW.OB 11:07 → MW.SDS 12-01 09:30
PROVIDERS: ATTEND Obstetrics & Gynecology
PROC: 0UT9FZZ Resection of Uterus, Via Natural or Artificial Opening With Percutaneous Endoscopic Assistance (ICD-10-PCS; principal; 2016-11-30)
PROC: 0UTC7ZZ Resection of Cervix, Via Natural or Artificial Opening (ICD-10-PCS; 2016-11-30)
PROC: 0UT2FZZ Resection of Bilateral Ovaries, Via Natural or Artificial Opening With Percutaneous Endoscopic Assistance (ICD-10-PCS; 2016-11-30)
PROC: 0UT7FZZ Resection of Bilateral Fallopian Tubes, Via Natural or Artificial Opening With Percutaneous Endoscopic Assistance (ICD-10-PCS; 2016-11-30)
DX: D25.0 Submucous leiomyoma of uterus (principal); D25.1 Intramural leiomyoma of uterus; D25.2 Subserosal leiomyoma of uterus; N85.00 Endometrial hyperplasia, unspecified; N72 Inflammatory disease of cervix uteri; D27.0 Benign neoplasm of right ovary; N83.02 Follicular cyst of left ovary; N83.01 Follicular cyst of right ovary; D64.9 Anemia, unspecified; E78.00 Pure hypercholesterolemia, unspecified; I10 Essential (primary) hypertension; I34.1 Nonrheumatic mitral (valve) prolapse; E11.9 Type 2 diabetes mellitus without complications; Z79.84 Long term (current) use of oral hypoglycemic drugs; Z79.899 Other long term (current) drug therapy; Z98.890 Other specified postprocedural states
CPT/HCPCS: 36415; 36430; 58571; 80048; 82962; 84703; 85025; 85027; 86850; 86900; 86901; 86920; 86921; 86922; A9270; J0690; J1170; J1885; J1940; J2250; J2270; J2370; J2405; J2710; J3010; J7120; P9016; 00944; 88307; J2704

== ENCOUNTER 2018-11-14 08:51 | Day surgery (SDC) | payer OTHER ==
[~2018-11-14 08:51] MED LIST changes: -Midazolam 1 MG/ML 2 ML SDV ONE; -Neostigmine Methylsulfate 1 MG/ML 5 ML Syringe ONE; -Ondansetron 4 MG/2 ML SDV ONE; -Rocuronium 10 MG/ML 10 ML Syringe ONE; -Sodium Chloride 0.9% 20 ML ONE; -ceFAZolin 1 GM Vial ONE; -ceFAZolin 2 GM in Premix Bag 1 BAG IV ONE; +fentaNYL 100 MCG/2 ML SDV ONE; -fentaNYL 250 MCG/5 ML SDV ONE
[2018-11-14] MEDS ORDERED: fentaNYL 100 MCG/2 ML SDV IVPUSH PRN (09:36)
[2018-11-14] MEDS ORDERED: Ondansetron 4 MG/2 ML SDV IVPUSH PRN (09:36)
--- NOTE | 2018-11-14 09:36 | PCM.PREANE ---
Preanesthetic Assessment - Anesthesia/Transfusion/Family Hx Anesthesia History: Prior Anesthesia Without Reaction Transfusion History: No Prior Transfusion(s) - Review of Systems General: No Symptoms Pulmonary: No Symptoms Cardiovascular: No Symptoms Gastrointestinal: No Symptoms Neurological: No Symptoms Other: Reports: None - Physical Assessment NPO Status Date: 11/14/18 NPO Status Time: 06:45 Height: 1.6 m Weight: 69.853 kg ASA Class: 2 Mental Status: Alert & Oriented x3 Airway Class: Mallampati = 2 Dentition: Reports: Normal Dentition Thyro-Mental Finger Breadths: 3 Mouth Opening Finger Breadths: 3 ROM/Head Extension: Full Lungs: Clear to Auscultation, Normal Respiratory Effort Cardiovascular: Regular Rate, Regular Rhythm - Allergies Allergies/Adverse Reactions: Allergies Allergy/AdvReac Type Severity Reaction Status Date / Time No Known Allergies Allergy Verified 11/11/18 12:31 - Acknowledgements Anesthesia Type Planned: MAC (The patient understands and accepts the anesthetic risks and benefits of MAC, including possible awareness requiring general anesthesia. All questions answered. She agrees to proceed, and has consented. ) Pt an Appropriate Candidate for the Planned Anesthesia: Yes Alternatives and Risks of Anesthesia Discussed w Pt/Guardian: Yes Pt/Guardian Understands and Agrees with Anesthesia Plan: Yes PreAnesthesia Questionnaire HEENT History: Reports: Other (See Below) Other HEENT History: wears glasses/contacts Cardiovascular History: Reports: High Cholesterol, Hypertension, Other (See Below) Other Cardiovascular History: mitral valve prolapse Respiratory History: Reports: None Gastrointestinal History: Reports: None Genitourinary History: Reports: None [employer] History: Reports: Fibroids, Musculoskeletal History: Reports: None Neurological History: Reports: None Psychiatric History: Reports: None Endocrine/Metabolic History: Reports: Diabetes, Type II ([id number]) Hematologic History: Reports: Anemia Immunologic History: Reports: None Oncologic (Cancer) History: Reports: None Dermatologic History: Reports: None - Infectious Disease History Infectious Disease History: Reports: Chicken Pox - Past Surgical History Head Surgeries/Procedures: Reports: None HEENT Surgical History: Reports: Oral Surgery Female Surgical History: Reports: Hysterectomy, Salpingo-Oophorectomy Other Female Surgeries/Procedures: hysteroscopy - SUBSTANCE USE Smoking Status *Q: Never Smoker Tobacco Use Within Last Twelve Months: Other (See Below) (SOCIAL ETOH) Recreational Drug Use History: No - HOME MEDS Home Medications: Home Meds metFORMIN [Glucophage] 1 tab PO DAILY 11/21/16 [History] Diabetes Support Therapy Pack 1 dose PO DAILY 11/11/18 [History] Estradiol 0.5 mg PO DAILY 11/11/18 [History] Lisinopril 10 mg PO DAILY 11/11/18 [History] Pravastatin Sodium [Pravastatin (Pravachol)] 40 mg PO DAILY 11/11/18 [History] Ubidecarenone [Coq-10] 100 mg PO DAILY 11/11/18 [History] - CURRENT (IN HOUSE) MEDS Current Meds: Current Medications Lactated Ringer's (Ringers, Lactated) 1,000 mls @ 125 mls/hr IV ASDIRECTED MITRA Sodium Chloride (Saline Flush) 10 ml FLUSH ASDIRECTED PRN PRN Reason: Keep Vein Open Sodium Chloride (Saline Flush) 2.5 ml FLUSH ASDIRECTED PRN PRN Reason: Keep Vein Open Sodium Chloride (Saline Flush) 10 ml FLUSH ASDIRECTED PRN PRN Reason: Keep Vein Open Sodium Chloride (Saline Flush) 2.5 ml FLUSH ASDIRECTED PRN PRN Reason: Keep Vein Open Discontinued Medications Fentanyl (Sublimaze) Confirm Administered Dose 100 mcg .ROUTE .STK-MED ONE Stop: 11/14/18 07:37 Lidocaine (Xylocaine-Mpf 2%) Confirm Administered Dose 5 ml .ROUTE .STK-MED ONE Stop: 11/14/18 07:36 Propofol (Diprivan 20 Ml) Confirm Administered Dose 400 mg .ROUTE .STK-MED ONE Stop: 11/14/18 07:37
--- NOTE | 2018-11-14 11:17 | PCM.OPNOTE ---
- General Post-Op/Procedure Note Date of Surgery/Procedure: 11/14/18 Operative Procedure(s): Colonoscopy Findings: Normal colonoscopy Pre Op Diagnosis: Screening colonoscopy Post-Op Diagnosis: normal colonoscopy Anesthesia Technique: MAC Primary Surgeon: Leonora Neil Condition: Good
--- NOTE | 2018-11-14 11:18 | PCM.POSTAN ---
POST ANESTHESIA ASSESSMENT - MENTAL STATUS Mental Status: Alert, Oriented - RESPIRATORY Respiratory Status: Respiratory Rate WNL, Airway Patent, O2 Saturation Stable - CARDIOVASCULAR CV Status: Pulse Rate WNL, Blood Pressure Stable - GASTROINTESTINAL GI Status: No Symptoms - PAIN Pain Score: 0 - POST OP HYDRATION Hydration Status: Adequate & Stable - OBSERVATIONS Free Text/Narrative:: The patient tolerated the procedure well. There were no apparent anesthetic complications at this time. Discharge to home per criteria.
[2018-11-14 11:30] VITALS: BP 134/93
--- NOTE | 2018-11-14 11:46 | PCM48HPAN ---
Post Anesthesia Note - EVALUATION WITHIN 48HRS OF ANESTHETIC Vital Signs in Normal Range: Yes Patient Participated in Evaluation: Yes Respiratory Function Stable: Yes Airway Patent: Yes Cardiovascular Function Stable: Yes Hydration Status Stable: Yes Pain Control Satisfactory: Yes Nausea and Vomiting Control Satisfactory: Yes Mental Status Recovered: Yes Resp Rate: 16 - COMMENTS/OBSERVATIONS Free Text/Narrative:: The patient tolerated the procedure well. Has no complaints at this time. Discharge home per criteria.
--- NOTE | 2018-11-15 13:08 | OR ---
SURGEON: RENO JEFF MD DATE OF PROCEDURE: 11/14/2018 PREOPERATIVE DIAGNOSIS: Screening colonoscopy. POSTOPERATIVE DIAGNOSIS: Screening colonoscopy. PROCEDURE PERFORMED: Screening colonoscopy. ANESTHESIA: MAC. INSTRUMENT USED: Olympus colonoscope. EXTENT OF EXAM: To the cecum. PREPARATION: Good. LIMITATIONS: None. INDICATION FOR EXAMINATION: The patient is a 53-year-old female who presents for a screening colonoscopy. We discussed the procedure, expected perioperative course, and risks including bleeding, infection, or damage to surrounding structures including perforation. The patient verbalized understanding and wishes to proceed. PROCEDURE IN DETAIL: The patient was brought to the endoscopy suite and placed in the left lateral decubitus position. A time-out was completed verifying the patient's name, age, date of , allergies, and procedure to be performed. Monitored anesthesia care was induced and continuous oxygen was provided via nasal cannula throughout the procedure. After adequate sedation was achieved, a digital rectal exam was performed. This exam was within normal limits. A well lubricated colonoscope was inserted in the rectum and advanced under direct visualization to the level of the cecum. The cecum was identified by both visual and anatomic landmarks. A photograph was taken of the cecal cap as well as with the scope retroflexed within the cecum. The scope was then straightened out and fully withdrawn while examining the color, texture, anatomy, and integrity of the mucosa from the cecum to the anal canal. The findings were consistent with normal colonic mucosa. The scope was then brought into the rectum and retroflexed to allow visualization of the anal canal opening. This appeared normal and a photograph was taken. The scope was then straightened out and fully withdrawn. The cecum to anus time was 6 minutes. The patient tolerated the procedure well and was taken to PACU in stable condition. ENDOSCOPIC DIAGNOSIS: Normal colonoscopy. RECOMMENDATIONS: Follow up in clinic in 10 years. ADELE / ANNMARIE /[id number]
== END 2018-11-14 11:57 | disposition home or self-care (01) ==
LOC: MW.SDS 08:51
PROVIDERS: ATTEND Surgery
DX: Z12.11 Encounter for screening for malignant neoplasm of colon (principal); I10 Essential (primary) hypertension; E11.9 Type 2 diabetes mellitus without complications; E78.00 Pure hypercholesterolemia, unspecified; I34.1 Nonrheumatic mitral (valve) prolapse; Z79.84 Long term (current) use of oral hypoglycemic drugs; Z79.899 Other long term (current) drug therapy
CPT/HCPCS: 45378; 82962; J2001; J2704; J3010; J7120